=== PATIENT | female | born 1985 | race Caucasian/White ===

== ENCOUNTER → 2021-05-05 | Outpatient (CLI) | payer OTHER ==
[~2021-05-05] VITALS: Ht 165.1 cm; Wt 68.1 kg
== END | disposition home or self-care (01) ==
LOC: PREOP 05:53
PROVIDERS: ATTEND Surgery
DX: Z01.818 Encounter for other preprocedural examination (principal)

== ENCOUNTER 2021-05-12 09:55 | Day surgery (SDC) | payer OTHER ==
[~2021-05-12] VITALS: Ht 165.1 cm; Wt 68.1 kg
[2021-05-12] MEDS ORDERED: LACTATED RINGERS 1,000 ML IV STA (10:04)
[2021-05-12] MEDS ORDERED: LACTATED RINGERS 1,000 ML IV ONE (10:08)
[2021-05-12 10:25] VITALS: BP 127/84
--- NOTE | 2021-05-12 10:34 | Progress Note-Pre Operative ---
Pre-Operative Progress Note H&P Reviewed The H&P was reviewed, patient examined and no changes noted. Time Seen by Provider: 10:33 Date H&P Reviewed: May 12, 2021 Time H&P Reviewed: 10:33 Pre-Operative Diagnosis: Rectal bleed, family hx of colon polyps KIAN DORSEY DO May 12, 2021 10:34
[2021-05-12] MEDS ORDERED: proPOfol 200 MG/20 ML (DIPRIVAN) VIAL IV ONE (11:46)
[2021-05-12 12:15] VITALS: BP 94/57
[2021-05-12 12:20] VITALS: BP 97/68
--- NOTE | 2021-05-12 12:21 | Progress Note-Post Operative ---
Post-Operative Progess Note Surgeon (s)/Gas Mask Assembler (s) Surgeon KIAN DORSEY DO Gas Mask Assembler: none Pre-Operative Diagnosis Rectal bleed, family hx of colon polyps Post-Operative Diagnosis int hemorrhoids ??anal fissure Procedure & Operative Findings Date of Procedure 05/12/21 Procedure Performed/Findings Colonoscopy PROCEDURE NOTE: After informed consent was obtained, the patient was brought to the endoscopy suite, placed in bed in left lateral decubitus position. She was administered IV sedation by the DIRECTOR CLINICAL APPLICATIONS who then monitored her vitals the entire time, heart rate, blood pressure and pulse ox and the scope was inserted, pushed all the way to about 110 cm and pushed into the cecum, took a picture of appendiceal orifice and then slowly withdrew the scope insufflating to look circumferentially at the stovall. Starting in the cecum, up the ascending colon to the hepatic flexure, then down the transverse colon, splenic flexure, into the descending colon down in the sigmoid and then into the rectal vault and retroflexed the scope. Took picture of the internal hemorrhoids. Tried to robyn the rectum, unsure if I saw a fissure or not. The patient tolerated the procedure. She was recovered in endoscopy suite. Anesthesia Type IV sedation by DIRECTOR CLINICAL APPLICATIONS Estimated Blood Loss Estimated blood loss (mL): none Specimens/Packing Specimens Removed none KIAN DORSEY DO May 12, 2021 12:21
--- NOTE | 2021-05-12 12:21 | Endoscopy Discharge Instruct ---
Endo Procedure/Findings Findings 1.: Internal Hemorrhoids Discharge Instructions - Activity: You might feel a little sleepy until tomorrow. This is due to the me dicine you received to relax you. Until tomorrow, you should: NOT drive a car, operate machinery or power tools. NOT drink any alcoholic beverages. NOT make any important decisions or sign importortant papers. Do not return to work until tomorrow, unless otherwise instructed. Resume previous activities tomorrow. Diet: Start by taking liquids. If you tolerate liquids, advance to solid food. 1.: Colonscopy in 10 years Notify Physician - If you experience excessive bleeding, unusual abdominal pain, fever, or chest pain, contact your doctor immediately. KIAN DORSEY DO May 12, 2021 12:21
[2021-05-12 12:40] VITALS: BP 103/73
--- NOTE | 2021-05-12 13:05 | Anesthesia-General Post-Op ---
MAC Patient Condition Mental Status/LOC: Same as Preop Cardiovascular: Satisfactory Nausea/Vomiting: Absent Respiratory: Satisfactory Pain: Controlled Complications: Absent Post Op Complications Complications None Follow Up Care/Instructions Patient Instructions None needed. Anesthesiology Discharge Order Discharge Order Patient is doing well, no complaints, stable vital signs, no apparent adverse anesthesia problems. No complications reported per nursing. SAMI ZAMORA CRNA May 12, 2021 13:05
[2021-05-12 13:15] VITALS: BP 103/73
== END 2021-05-12 13:15 | disposition home or self-care (01) ==
LOC: ENDO 09:55
PROVIDERS: ATTEND Surgery
DX: K62.5 Hemorrhage of anus and rectum (principal); K21.9 Gastro-esophageal reflux disease without esophagitis; E78.5 Hyperlipidemia, unspecified; Z83.71 Family history of colonic polyps; Z90.89 Acquired absence of other organs; Z82.49 Family history of ischemic heart disease and other diseases of the circulatory system
CPT/HCPCS: 84703

== ENCOUNTER → 2022-10-09 | Outpatient (CLI) | payer OTHER ==
[~2022-10-09] VITALS: Ht 165.1 cm; Wt 61.4 kg
[~2022-10-09] MED LIST: LIDOCAINE 1% INJ 30 ML (XYLOCAINE) VIAL INJ ONE
--- NOTE | 2022-10-09 10:01 | Diagnostic Imaging Report ---
INDICATION: Right breast nodule. Patient presents for ultrasound-guided biopsy. Patient brought to the sonographic suite and placed on the table in the supine position. Ultrasound imaging of the right breast was performed to evaluate appropriate entry site. Right breast was then prepped and draped in usual sterile fashion. Small amount of 1% lidocaine was utilized for local anesthesia. A total of 4 core biopsies were obtained through the solid nodule at the 12:30 location of the right breast, 5 cm from the nipple utilizing 14-gauge Achieve needle. A marker clip was then deployed. Hemostasis was obtained using manual compression. Patient tolerated the procedure well and was sent for postprocedure mammogram in satisfactory condition. IMPRESSION: Successful ultrasound guided core biopsy of the solid nodule 12:30 location right breast, 5 cm from the nipple. Pathology results are currently pending. Dictated by: Dictated on workstation # [id number]
--- NOTE | 2022-10-09 13:36 | Diagnostic Imaging Report ---
INDICATION: Right breast nodule. Patient status post ultrasound guided core biopsy. Unilateral right 2-D CC and ML mammography was obtained after patient underwent ultrasound-guided biopsy. There is a marker clip noted within the nodule in the upper right breast at posterior depth. IMPRESSION: Marker clip placement, as described. Dictated by: Dictated on workstation # [id number]
== END ==
LOC: RAD 08:41
PROVIDERS: ATTEND Nurse Practitioner Family
DX: N63.12 Unspecified lump in the right breast, upper inner quadrant (principal); Z98.82 Breast implant status
CPT/HCPCS: 19083; 77065; A4648; G0279